=== PATIENT | female | born 1990 ===

== ENCOUNTER 2016-09-08 05:23 | Emergency (ER) | payer MEDICAID, OTHER ==
[2016-09-08] MEDS ORDERED: PREDNISONE 20 MG TABLET ONE (05:40)
== END 2016-09-08 06:04 | disposition home or self-care (01) ==
LOC: ED 05:23
DX: K08.89 Other specified disorders of teeth and supporting structures (principal); F17.210 Nicotine dependence, cigarettes, uncomplicated
CPT/HCPCS: 99283 ×2; 64450 ×2; J7512

== ENCOUNTER 2016-09-12 04:11 | Emergency (ER) | payer OTHER | END 2016-09-12 05:56 | disposition home or self-care (01) | LOC: ED 04:11 | DX: K08.89 Other specified disorders of teeth and supporting structures (principal); F17.210 Nicotine dependence, cigarettes, uncomplicated; Z79.2 Long term (current) use of antibiotics; Z79.1 Long term (current) use of non-steroidal anti-inflammatories (NSAID); Z79.891 Long term (current) use of opiate analgesic ==